=== PATIENT | male | born 1980 | race Caucasian/White ===

== ENCOUNTER 2024-09-30 09:23 | Day surgery (SDC) | payer OTHER ==
[~2024-09-30] VITALS: Ht 182.9 cm; Wt 139.7 kg
[~2024-09-30 09:23] MED LIST: ACET-897 PO; BACI1CAP PO; CIPR-249 PO; LISI10TA22 PO; METO100T5 PO; NORV5TAB PO; OXYC1TAB23 PO; PERCOCET PO; PYRI1TAB5 PO; SILD100T PO; TALK1KIT MC; TAMS-18 PO; VYVA60CA PO; ceFAZolin SOD 3 GM in DEXTROSE 5% (D5W) MINI-BAG PLU 1... IV ONE
[2024-09-30] MEDS: LR 1,000 ML IV SCH (10:21)
[2024-09-30] MEDS ORDERED: ISOVUE-300 61% 100 ML VIAL As Ordered ONE (10:42)
[2024-09-30] MEDS ORDERED: dexAMETHasone 4 MG/ML 1 ML VIAL As Ordered ONE (11:08)
[2024-09-30] MEDS ORDERED: LIDOCAINE 2% 100 MG/5 ML SDV (FOR ANES.) As Ordered ONE (11:09)
[2024-09-30] MEDS ORDERED: KETOROLAC 30 MG/ML 1 ML VIAL As Ordered ONE (11:33)
[2024-09-30] MEDS ORDERED: ONDANSETRON 4MG 2ML VIAL As Ordered ONE (11:33)
[2024-09-30] MEDS ORDERED: HYDROMORPHONE HCL 0.5 MG/0.5 ML SYRINGE IV PRN (11:45)
[2024-09-30] MEDS ORDERED: LR 1,000 ML IV SCH (11:45)
[2024-09-30] MEDS ORDERED: ONDANSETRON 4MG 2ML VIAL IV PRN (11:45)
[2024-09-30] MEDS ORDERED: OXYB5TAB14 PO (12:29)
[2024-09-30 15:36] VITALS: BP 128/75; TEMP 97.4; O2SAT 97
== END 2024-09-30 15:44 | disposition home or self-care (01) ==
LOC: M SDC 09:23
PROVIDERS: ATTEND Urology
DX: N13.2 Hydronephrosis with renal and ureteral calculous obstruction (principal); I10 Essential (primary) hypertension; G47.33 Obstructive sleep apnea (adult) (pediatric); K21.9 Gastro-esophageal reflux disease without esophagitis; Z79.899 Other long term (current) drug therapy; F90.9 Attention-deficit hyperactivity disorder, unspecified type; F41.9 Anxiety disorder, unspecified; Z86.16 Personal history of COVID-19
CPT/HCPCS: 52356; 76000; 82365; C2617; J1100; J1885; J2405; J3010; Q9967